=== PATIENT | female | born 1975 | race African-American/Black ===

== ENCOUNTER 2018-06-23 13:52 | Emergency (ER) | payer SELFPAY ==
[~2018-06-23] VITALS: Ht 170.2 cm; Wt 100.0 kg
[2018-06-23 18:51] LABS: EOSINOPHILS % 1.6 % (0.0-5.0); HEMATOCRIT. 31.1 % (36.0-48.0); HEMOGLOBIN. 10.3 g/dL (12.0-16.0); LYMPHOCYTES % 29.4 % (20.0-50.0); MEAN CORPUSCULAR HEMOGLOBIN 28.8 pg (28.0-32.0); MEAN CORPUSCULAR VOLUME 86.7 fL (81.0-99.0); MEAN PLATELET VOLUME 7.3 fl (7.4-10.4); MONOCYTES % 6.3 % (2.0-8.0); NEUTROPHILS % 61.7 % (40.0-76.0); PLATELET 349 x1000/uL (130-400); RED BLOOD CELL COUNT 3.58 mill/uL (4.2-5.4); RED CELL DISTRIBUTION WIDTH 15.8 % (11.6-14.6)
[2018-06-23 19:02] LABS: CHLORIDE 108 mEq/L (98-107)
[2018-06-23 19:04] LABS: HCG SCREEN NEGATIVE
[2018-06-23 19:06] LABS: ETHANOL BLOOD < 10 mg/dL
[2018-06-23] MEDS ORDERED: IBUPROFEN 600MG TABLET PO ONE (20:00)
[2018-06-23] MEDS: OLANZAPINE 10MG TABLET PO SCH (20:15)
[2018-06-23 20:32] LABS: CLARITY URINE CLEAR (CLEAR); COLOR URINE YELLOW (YELLOW); KETONES URINE NEGATIVE (NEGATIVE); LEUKOCYTE ESTERASE URINE TRACE (NEGATIVE); NITRITE URINE NEGATIVE (NEGATIVE); OCCULT BLOOD URINE NEGATIVE (NEGATIVE); PH URINE 6.5 (4.5-8.0); PROTEIN URINE NEGATIVE (NEGATIVE)
[2018-06-23 20:43] LABS: *AMPHETAMINES SCREEN URINE NEGATIVE (NEGATIVE)
[2018-06-23 20:44] LABS: *BARBITURATES SCREEN URINE NEGATIVE (NEGATIVE); *BENZODIAZEPINES SCREEN URINE NEGATIVE (NEGATIVE); *COCAINE SCREEN URINE NEGATIVE (NEGATIVE); METHADONE URINE SCREEN NEGATIVE (NEGATIVE); OPIATES URINE SCREEN NEGATIVE (NEGATIVE); PHENCYCLIDINE URINE SCREEN NEGATIVE (NEGATIVE)
[2018-06-23 20:45] LABS: CANNABINOID URINE SCREEN PRESUMTIVE POSITIVE (NEGATIVE)
[2018-06-24 08:56] VITALS: BP 122/87
[2018-06-24] MEDS: OLANZAPINE 10MG TABLET PO SCH (09:00)
== END 2018-06-24 11:05 | disposition home or self-care (01) ==
LOC: ER 13:52
DX: F23 Brief psychotic disorder (principal); R45.851 Suicidal ideations; F32.9 Major depressive disorder, single episode, unspecified; F41.9 Anxiety disorder, unspecified; F12.10 Cannabis abuse, uncomplicated; F17.210 Nicotine dependence, cigarettes, uncomplicated
CPT/HCPCS: 36415; 80305; 80307; 80320; 80329; 84443; 84703; 99284; G0480